=== PATIENT | male | born 1955 | race Caucasian/White ===

== ENCOUNTER 2017-01-02 14:25 | Inpatient (IN) | payer OTHER, MEDICARE ==
[~2017-01-02] VITALS: Ht 172.7 cm; Wt 147.4 kg
--- NOTE | ~2017-01-02 | ST ---
[place], [place] EXERCISE STRESS TEST REPORT NAME: REJI RUSS UNIT #: [id number] ROOM: 405 DOCTOR: JOSÉ MIGUEL HARDING MD BIRTHDATE: [birth year] DOS: 01/03/2017 Lexiscan Stress EKG REFERRING PHYSICIAN: Dr. Rossy Delarosa INDICATION: Precordial chest pain. The patient underwent standard protocol Lexiscan stress. The patient's baseline EKG showed normal sinus rhythm with isolated PVC. The patient's baseline heart rate was 90 with a blood pressure of 118/72. The patient's peak heart rate was 150 with a blood pressure 122/84. The patient denied chest pain. The patient had no significant other symptoms. The patient had no EKG changes. The patient had rare PVCs that was the only arrhythmia issue. SUMMARY OF FINDINGS: Unremarkable Lexiscan stress EKG. Please see separate report for perfusion scan results. JOSÉ MIGUEL HARDING MD CM:STRESS:EXERCISE STRESS TEST REPORT [id number] JOSÉ MIGUEL HARDING MD
[2017-01-02 14:25] VITALS: BP 113/64
[2017-01-02 14:58] LABS: BASO % 0.5 % (0.0-1.0); EOS # 0.2 10*3/uL (0.0-0.4); EOS % 5.3 % (1.0-4.0); HEMATOCRIT 34.7 % (42.0-52.0); HEMOGLOBIN 11.2 g/dl (14.0-18.0); LYMPH # 1.4 10*3/uL (1.3-4.4); LYMPH % 32.9 % (27.0-41.0); MEAN CELL VOLUME 90.8 fl (80.0-94.0); MEAN CORPUSCULAR HGB 29.3 pg (27.0-31.0); MEAN CORPUSCULAR HGB CONC 32.3 g/dl (33.0-37.0); MEAN PLATELET VOLUME 9.9 fl (9.6-12.3); MONO # 0.4 10*3/uL (0.1-1.0); MONO % 10.7 % (3.0-9.0); NEUT # 2.1 10*3/uL (2.3-7.9); NEUT % 50.4 % (47.0-73.0); PLATELET COUNT AUTOMATED 75 10*3/uL (130-400); RED BLOOD COUNT 3.82 10*6/uL (4.50-5.90); RED CELL DISTRI WIDTH 14.7 % (0-14.5); WHITE BLOOD COUNT 4.1 10*3/uL (4.8-10.8)
[2017-01-02 15:07] LABS: INTERNATIONAL NORM RATIO 1.1 (2.0-3.5); PROTHROMBIN TIME 11.4 SECONDS (9.0-12.4)
[2017-01-02] MEDS ORDERED: METFORMIN HCL500 MG PO (15:09)
[2017-01-02] MEDS ORDERED: LISINOPRIL10 M1 PO (15:09)
[2017-01-02] MEDS ORDERED: TAMSULOSIN HCL0.4 MG PO (15:09)
[2017-01-02] MEDS ORDERED: GLIPIZIDE5 MG PO (15:09)
[2017-01-02] MEDS ORDERED: MULTIPLE VITAMI1 TA5 PO (15:09)
[2017-01-02 15:14] LABS: ALBUMIN 3.2 gm/dl (3.1-4.5); ALKALINE PHOSPHATASE 79 U/L (45-117); BILIRUBIN, TOTAL 0.4 mg/dl (0.2-1.0); BUN 13 mg/dl (7-24); C-REACTIVE PROTEIN 0.83 MG/DL (0-0.3); CARBON DIOXIDE 29 mmol/L (21-32); CHLORIDE 105 mmol/L (98-107); CKMB 0.7 ng/ml (0.5-3.6); CPK 49 U/L (39-308); EST GLOM FILT AFRICAN AMERICAN > 60 ml/min; GLUCOSE 117 mg/dL (65-99); MAGNESIUM 2.1 mg/dL (1.5-2.1); POTASSIUM 4.1 mmol/L (3.5-5.1); SGOT/AST 34 IU/L (3-35); SGPT/ALT 43 U/L (12-78); SODIUM 141 mmol/L (136-145)
[2017-01-02 15:16] LABS: TROPONIN I < 0.015 ng/ml (<0.045)
[2017-01-02 16:22] VITALS: BP 106/60
[2017-01-02 17:40] VITALS: BP 127/65
[2017-01-02 18:15] VITALS: BP 122/58
[2017-01-02] MEDS ORDERED: ASPIRIN81 M1 PO (18:23)
[2017-01-02] MEDS ORDERED: GOODY'S EX-STR1 EAC1 PO (18:24)
[2017-01-02 20:00] VITALS: BP 118/63
[2017-01-03] VITALS: BP 104/56
[2017-01-03 00:29] LABS: CKMB 0.5 ng/ml (0.5-3.6); CPK 51 U/L (39-308)
[2017-01-03 00:30] LABS: TROPONIN I < 0.015 ng/ml (<0.045)
[2017-01-03 06:25] LABS: BASO % 0.5 % (0.0-1.0); EOS # 0.3 10*3/uL (0.0-0.4); HEMATOCRIT 34.3 % (42.0-52.0); HEMOGLOBIN 11.1 g/dl (14.0-18.0); LYMPH # 1.5 10*3/uL (1.3-4.4); LYMPH % 33.8 % (27.0-41.0); MEAN CELL VOLUME 90.7 fl (80.0-94.0); MEAN CORPUSCULAR HGB 29.4 pg (27.0-31.0); MEAN CORPUSCULAR HGB CONC 32.4 g/dl (33.0-37.0); MEAN PLATELET VOLUME 10.1 fl (9.6-12.3); MONO # 0.5 10*3/uL (0.1-1.0); MONO % 10.6 % (3.0-9.0); NEUT # 2.1 10*3/uL (2.3-7.9); NEUT % 48.9 % (47.0-73.0); PLATELET COUNT AUTOMATED 71 10*3/uL (130-400); RED BLOOD COUNT 3.78 10*6/uL (4.50-5.90); RED CELL DISTRI WIDTH 14.7 % (0-14.5); WHITE BLOOD COUNT 4.4 10*3/uL (4.8-10.8)
[2017-01-03 06:34] LABS: CKMB 0.6 ng/ml (0.5-3.6); CPK 49 U/L (39-308)
[2017-01-03 06:40] LABS: TROPONIN I < 0.015 ng/ml (<0.045)
[2017-01-03 06:44] LABS: HEMOGLOBIN A1c 6.1 % (4.8-5.6)
[2017-01-03 06:57] LABS: BILIRUBIN, TOTAL 0.6 mg/dl (0.2-1.0); BUN 11 mg/dl (7-24); CARBON DIOXIDE 30 mmol/L (21-32); CHLORIDE 106 mmol/L (98-107); CHOLESTEROL 158 mg/dL (<200); EST GLOM FILT AFRICAN AMERICAN > 60 ml/min; GLUCOSE 120 mg/dL (65-99); POTASSIUM 4.5 mmol/L (3.5-5.1); SGOT/AST 31 IU/L (3-35); SGPT/ALT 42 U/L (12-78); SODIUM 141 mmol/L (136-145)
[2017-01-03 07:03] LABS: INTERNATIONAL NORM RATIO 1.1 (2.0-3.5); PROTHROMBIN TIME 11.4 SECONDS (9.0-12.4)
[2017-01-03 07:04] LABS: ALKALINE PHOSPHATASE 66 U/L (45-117); FREE T4 0.85 ng/dl (0.76-1.46); HDL CHOLESTEROL 63 mg/dl (40-60); LDL CHOLESTEROL 78 mg/dL (9-159); TOTAL PROTEIN 6.6 gm/dL (6.4-8.2); TRIGLYCERIDES 83 mg/dl (<150); VLDL CHOLESTEROL 17 mg/dL (6-40)
[2017-01-03 07:17] LABS: VITAMIN D, 25-HYDROXY 42.4 ng/mL (30-100)
[2017-01-03 07:18] LABS: FOLIC ACID 19.38 ng/mL (>5.38)
[2017-01-03 08:00] VITALS: BP 130/70
[2017-01-03 12:24] LABS: CKMB 0.7 ng/ml (0.5-3.6); CPK 61 U/L (39-308); TROPONIN I < 0.015 ng/ml (<0.045)
[2017-01-03 16:00] VITALS: BP 152/79
[2017-01-03 20:00] VITALS: BP 136/79
== END 2017-01-03 20:48 | disposition home or self-care (01) | DRG 206 ==
LOC: ED 14:25 → EDHOLD 17:04 → 4E 17:04
PROVIDERS: Internal Medicine; Nurse Practitioner Family
PROC: 4A02XM4 Measurement of Cardiac Total Activity, External Approach (ICD-10-PCS; principal; 2017-01-03)
DX: M94.0 Chondrocostal junction syndrome [Tietze] (principal); D61.818 Other pancytopenia; E11.65 Type 2 diabetes mellitus with hyperglycemia; Z68.43 Body mass index [BMI] 50.0-59.9, adult; E83.51 Hypocalcemia; R01.1 Cardiac murmur, unspecified; I10 Essential (primary) hypertension; E66.01 Morbid (severe) obesity due to excess calories; Z87.891 Personal history of nicotine dependence; Z79.82 Long term (current) use of aspirin; Z79.84 Long term (current) use of oral hypoglycemic drugs; Z82.49 Family history of ischemic heart disease and other diseases of the circulatory system

== ENCOUNTER 2019-06-29 11:30 | Inpatient (IN) | payer MEDICARE, OTHER ==
[~2019-06-29] VITALS: Ht 172.7 cm; Wt 140.6 kg
[2019-06-29] VITALS (11 sets, daily range): BP systolic 90–114; BP diastolic 54–66
--- NOTE | ~2019-06-29 | EKG ---
[place], [place] ELECTROCARDIOGRAM REPORT NAME: REJI RUSS UNIT #: [id number] ROOM: 504 DOCTOR: EFREN DRAFT REPORT BIRTHDATE: [birth year] [facility] Test Date: 2019-06-29 Test Time: 14:38:28 Pat Name: REJI RUSS Department: Room: 504 Gender: M Utility Lineman: : 1955 Requested By: BRIAN KENT Order Number: [id number] Reading MD: Molly Beach MD Measurements Intervals [place] Rate: 108 P: [place]: QRS: 15 QRSD: 84 T: 17 QT: 323 QTc: 433 Interpretive Statements Atrial fibrillation Low voltage, precordial leads No previous ECG available for comparison Electronically Signed On 06-30-2019 17:29:24 PDT by Molly Beach MD CM:EKGRPT:ELECTROCARDIOGRAM REPORT [id number] BRIAN WILLIAMSON DRAFT REPORT BRIAN KENT DO
--- NOTE | ~2019-06-29 | CON ---
[place], [place] REPORT OF CONSULTATION NAME: REJI RUSS UNIT #: [id number] ROOM: 504 DOCTOR: MAYO CEDILLONATALEE BIRTHDATE: [birth year] DOS: 06/30/2019 HISTORY OF PRESENT ILLNESS: This is a 63-year-old gentleman apparently who follows up with the [facility], had an episode of tachyarrhythmia. The patient was found to be in atrial fibrillation with a rapid ventricular response, started on a Cardizem drip. The patient back into sinus rhythm. He denies any chest discomfort. No acute EKG changes suggestion of myocardial infarction. No history of previous TN. The patient is doing quite well. Denies any chest pain, shortness of breath, palpitations. Hemodynamically stable. PAST MEDICAL HISTORY: Significant for diabetes, hypertension, and dyslipidemia. PAST SURGICAL HISTORY: Adenoidectomy, pilonidal cyst, tonsillectomy and inguinal hernia surgery. SOCIAL HISTORY: Former smoker. FAMILY HISTORY: Not contributory. HOME MEDICATIONS: Aspirin, glipizide, lisinopril, and metformin. REVIEW OF SYSTEMS: CONSTITUTIONAL: No fever, no chills. HEENT: No visual disturbance or hearing problems. CARDIOVASCULAR: As per HPI. GASTROINTESTINAL: No nausea, no vomiting. GENITOURINARY: No dysuria. NEUROLOGICAL: Stable. PHYSICAL EXAMINATION: GENERAL: The patient is alert, oriented x 3. HEENT: Unremarkable. VITAL SIGNS: Blood pressure is 110/70. LUNGS: Clear. HEART: Sounds are regular. ABDOMEN: Soft, nontender. NEUROLOGIC: Stable. Original EKG showed atrial fibrillation, now he is in sinus rhythm. LABORATORY DATA: Shows hemoglobin 14.4 and hematocrit 42.9. Electrolytes are normal. Creatinine is normal. Troponins have been negative. LDL is normal. TSH is 1.64. IMPRESSION: The patient with paroxysmal atrial fibrillation, hypertension, diabetes, blood pressure is running on the lower side, decrease the metoprolol, and decrease the lisinopril. RECOMMENDATIONS: We will get an echocardiogram. Consideration should be given for a stress test as an outpatient and I will follow up with you. [place], [place] REPORT OF CONSULTATION NAME: REJI RUSS UNIT #: [id number] ROOM: 504 DOCTOR: NATALEE HUBER MD BIRTHDATE: [birth year] Thank you for this interesting consultation. NATALEE HUBER MD CM:CONSTR:REPORT OF CONSULTATION 1047 06/30/19 1616 interface
--- NOTE | ~2019-06-29 | EKG ---
[place], [place] ELECTROCARDIOGRAM REPORT NAME: REJI RUSS UNIT #: [id number] ROOM: 504 DOCTOR: EFREN DRAFT REPORT BIRTHDATE: [birth year] [facility] Test Date: 2019-06-29 Test Time: 18:14:14 Pat Name: REJI RUSS Department: Room: [facility] Gender: M Senior Professional Services Consultant: : 1955 Requested By: BRIAN KENT Order Number: [id number] Reading MD: Molly Beach MD Measurements Intervals [place] Rate: 90 P: [place]: QRS: 29 QRSD: 90 T: 32 QT: 365 QTc: 447 Interpretive Statements Atrial fibrillation Baseline wander in lead(s) V2 No previous ECG available for comparison Electronically Signed On 06-30-2019 17:30:34 PDT by Molly Beach MD CM:EKGRPT:ELECTROCARDIOGRAM REPORT [id number] 1730 BRIAN WILLIAMSON DRAFT REPORT BRIAN KENT DO
--- NOTE | ~2019-06-29 | EKG ---
[place], [place] ELECTROCARDIOGRAM REPORT NAME: REJI RUSS UNIT #: [id number] ROOM: 504 DOCTOR: EFREN DRAFT REPORT BIRTHDATE: [birth year] [facility] Test Date: 2019-06-29 Test Time: 11:45:48 Pat Name: REJI RUSS Department: Room: [facility] Gender: M Psych Rn: : 1955 Requested By: BRIAN KENT Order Number: [id number] Reading MD: Molly Beach MD Measurements Intervals [place] Rate: 119 P: [place]: QRS: 21 QRSD: 86 T: 22 QT: 312 QTc: 439 Interpretive Statements Atrial fibrillation No previous ECG available for comparison Electronically Signed On 06-30-2019 17:28:20 PDT by Molly Beach MD CM:EKGRPT:ELECTROCARDIOGRAM REPORT [id number] BRIAN WILLIAMSON DRAFT REPORT BRIAN KENT DO
[~2019-06-29 11:30] MED LIST: ASPIRIN81 M1 PO; GLIPIZIDE5 MG PO; GOODY'S EX-STR1 EAC1 PO; LISINOPRIL10 M1 PO; METFORMIN HCL500 MG PO; MULTIPLE VITAMI1 TA5 PO; TAMSULOSIN HCL0.4 MG PO
[2019-06-29 12:04] LABS: BASO % 0.2 % (0.0-1.0); EOS # 0.2 10*3/uL (0.0-0.4); EOS % 3.6 % (1.0-4.0); HEMATOCRIT 45.6 % (42.0-52.0); LYMPH # 1.5 10*3/uL (1.3-4.4); LYMPH % 27.4 % (27.0-41.0); MEAN CELL VOLUME 93.1 fl (80.0-94.0); MEAN CORPUSCULAR HGB 30.6 pg (27.0-31.0); MEAN CORPUSCULAR HGB CONC 32.9 g/dl (33.0-37.0); MEAN PLATELET VOLUME 10.3 fl (9.6-12.3); MONO # 0.6 10*3/uL (0.1-1.0); MONO % 11.5 % (3.0-9.0); NEUT % 57.1 % (47.0-73.0); PLATELET COUNT AUTOMATED 66 10*3/uL (130-400); RED CELL DISTRI WIDTH 14.6 % (0-14.5); WHITE BLOOD COUNT 5.3 10*3/uL (4.8-10.8)
[2019-06-29 12:14] LABS: ACT PARTIAL THROMBO TIME 26.9 SECONDS (20.0-32.1); INTERNATIONAL NORM RATIO 1.1 (2.0-3.5)
[2019-06-29 12:20] LABS: ALBUMIN 3.2 gm/dl (3.1-4.5); ALKALINE PHOSPHATASE 79 U/L (45-117); BUN 16 mg/dl (7-24); CHLORIDE 105 mmol/L (98-107); CREATININE 0.79 mg/dL (0.70-1.30); SGOT/AST 36 IU/L (3-35); SGPT/ALT 50 U/L (12-78); SODIUM 138 mmol/L (136-145); TOTAL PROTEIN 7.1 gm/dL (6.4-8.2)
[2019-06-29 12:23] LABS: TROPONIN I < 0.015 ng/ml (<0.045)
--- NOTE | 2019-06-29 13:22 | NUR ---
PT REMAINS W/O ACUTE DISTRESS NOTED AWAITING ALL RESULTS FOR ADDITIONAL PLAN OF CARE,PT POSITIONED FOR COMFORT WATCHING T.V.,FAMILY @ BEDSIDE AND CALL LIGHT WITHIN REACH.
--- NOTE | 2019-06-29 15:10 | NUR ---
HEART RATE 97 ON CM. CARDIZEM TITRATED TO 5MG/HR.
--- NOTE | 2019-06-29 15:20 | NUR ---
A 63, admitted to 5E, under the services of GIOVANI Parks DO with a diagnosis of AFIB W/ RVR NEW ONSET. Chief complaint is PER VA AFIB, DENIES COMPLAINTS. Patient arrived via stretcher from ER. Monitor applied. Initial assessment completed. Vital signs taken and recorded. GIOVANI PARKS DO notified of admission to the unit. Orders received. See assessment for past medical history, medications and allergies. Patient and/or family oriented to unit. [address] visitation policy reviewed. Clothing/patient valuable form completed. LORELEI TOBIN
[2019-06-29] MEDS ORDERED: IRON325 M1 PO (16:05)
--- NOTE | 2019-06-29 17:47 | NUR ---
DR MOY CORN GROWER FOR DR HUBER. NEW ORDERS RECEIVED.
--- NOTE | 2019-06-29 20:05 | NUR ---
CARDIZEM TITRATED TO 2.5MG D/T HEARTRATE IN 70'S, REMAINS AFIB.
--- NOTE | 2019-06-29 20:30 | NUR ---
CARDIZEM OFF AT THIS TIME. HEARTRATE IS NOW NORMAL SINUS AND RATE IN 60'S
--- NOTE | 2019-06-29 20:32 | NUR ---
Shift chart check completed.24 HR chart check completed.
--- NOTE | 2019-06-29 20:49 | NUR ---
DR ANNE MADE AWARE THAT PATIENT HAS CONVERTED TO NORMAL SINUS RHYTHM, WITH RATE IN 60'S, CARDIZEM HAS BEEN SHUT OFF.
--- NOTE | 2019-06-29 21:47 | NUR ---
DOSE OF TOPROL XL GIVEN PER DRS ORDERS, HEARTRATE 70 AT THIS TIME AND NSR RN WILL MONITOR
[2019-06-30] VITALS: BP 89/56
[2019-06-30 02:15] VITALS: BP 94/62
--- NOTE | 2019-06-30 06:33 | NUR ---
CONSULT AGAIN CALLED TO DR HUBER, AWAITING CALLBACK
[2019-06-30 06:34] LABS: BASO % 0.3 % (0.0-1.0); EOS # 0.2 10*3/uL (0.0-0.4); EOS % 3.1 % (1.0-4.0); HEMATOCRIT 42.9 % (42.0-52.0); HEMOGLOBIN 14.4 g/dl (14.0-18.0); LYMPH # 1.4 10*3/uL (1.3-4.4); LYMPH % 22.6 % (27.0-41.0); MEAN CELL VOLUME 92.7 fl (80.0-94.0); MEAN CORPUSCULAR HGB 31.1 pg (27.0-31.0); MEAN CORPUSCULAR HGB CONC 33.6 g/dl (33.0-37.0); MEAN PLATELET VOLUME 11.2 fl (9.6-12.3); MONO # 0.6 10*3/uL (0.1-1.0); MONO % 9.6 % (3.0-9.0); NEUT # 3.9 10*3/uL (2.3-7.9); NEUT % 64.2 % (47.0-73.0); PLATELET COUNT AUTOMATED 62 10*3/uL (130-400); RED BLOOD COUNT 4.63 10*6/uL (4.50-5.90); RED CELL DISTRI WIDTH 14.6 % (0-14.5); WHITE BLOOD COUNT 6.1 10*3/uL (4.8-10.8)
[2019-06-30 06:55] LABS: ALKALINE PHOSPHATASE 73 U/L (45-117); BUN 15 mg/dl (7-24); CHLORIDE 106 mmol/L (98-107); CHOLESTEROL 143 mg/dL (<200); FREE T4 0.95 ng/dl (0.76-1.46); HDL CHOLESTEROL 47 mg/dl (40-60); LDL CHOLESTEROL 78 mg/dL (9-159); PHOSPHOROUS 2.5 mg/dL (2.5-4.9); POTASSIUM 4.1 mmol/L (3.5-5.1); SGOT/AST 38 IU/L (3-35); SGPT/ALT 48 U/L (12-78); SODIUM 138 mmol/L (136-145); TOTAL PROTEIN 6.6 gm/dL (6.4-8.2); TRIGLYCERIDES 89 mg/dl (<150); VLDL CHOLESTEROL 18 mg/dL (6-40)
[2019-06-30 06:58] LABS: ACT PARTIAL THROMBO TIME 26.9 SECONDS (20.0-32.1); INTERNATIONAL NORM RATIO 1.1 (2.0-3.5)
[2019-06-30 07:40] LABS: VITAMIN D, 25-HYDROXY 26.6 ng/mL (30-100)
[2019-06-30 08:00] VITALS: BP 100/58
--- NOTE | 2019-06-30 09:18 | NUR ---
Patient resting quietly with no c/o discomfort. Respirations easy and regular. Vital signs stable. No overt distress. LORELEI TOBIN
--- NOTE | 2019-06-30 10:04 | NUR ---
DR PONCE NOTIFIED OF BP AT 100/58 WITHOUT AM MEDS.
--- NOTE | 2019-06-30 10:47 | NUR ---
DR PONCE UPDATED ON POC REGARDING STRESS AND MEDS PER DR HUBER.
[2019-06-30] MEDS ORDERED: VITAMIN D32000 UNI1 PO (11:02)
[2019-06-30] MEDS ORDERED: LISINOPRIL5 MG PO (11:02)
[2019-06-30] MEDS ORDERED: LOPRESSOR25 MG PO (11:02)
[2019-06-30 12:00] VITALS: BP 104/65
--- NOTE | 2019-06-30 13:04 | NUR ---
Conference Service Coordinator in to talk to patient. Patient states lives at HOME with . There are NO steps in the home. Physician: JAKUB [facility] Patient's level of ADLs: INDEPENDENT Patient has working utilities: YES DME: CPAP Follow-up physician's appointment after d/c: WILL BE MADE BY HOSITALIST NURSE DIRECTOR ON DISCHARGE Does patient want to access PORTAL?: NO Discharge plan PT LIVES AT HOME WITH HIS AND IS INDEPENDENT IN HIS CARE. DENIES NEEDS ON DISCHARGE. PLAN IS TO RETURN HOME WITH . USES A CPAP AT NIGHT. WILL CONTINUE TO FOLLOW. WILL HAVE A RIDE HOME PER PT.. MIGUEL ANGEL GRANT
--- NOTE | 2019-06-30 16:30 | NUR ---
LEAVING VIA WHEELCHAIR IN CARE OF AIDE TO DRIVE HIMSELF HOME.
== END 2019-06-30 16:30 | disposition home or self-care (01) | DRG 309 ==
LOC: ED 11:30 → EDHOLD 14:02 → 5E 14:02
PROVIDERS: Emergency Medicine; Internal Medicine; ADMIT Internal Medicine
DX: I48.0 Paroxysmal atrial fibrillation (principal); D69.3 Immune thrombocytopenic purpura; E87.2 Acidosis; Z68.42 Body mass index [BMI] 45.0-49.9, adult; E11.65 Type 2 diabetes mellitus with hyperglycemia; E80.6 Other disorders of bilirubin metabolism; E11.59 Type 2 diabetes mellitus with other circulatory complications; I10 Essential (primary) hypertension; E66.01 Morbid (severe) obesity due to excess calories; R01.1 Cardiac murmur, unspecified; K76.0 Fatty (change of) liver, not elsewhere classified; I87.8 Other specified disorders of veins; Z82.49 Family history of ischemic heart disease and other diseases of the circulatory system; Z87.891 Personal history of nicotine dependence; Z88.5 Allergy status to narcotic agent; Z79.899 Other long term (current) drug therapy

== ENCOUNTER → 2019-07-06 | Outpatient (CLI) | payer MEDICARE ==
[~2019-07-06] MED LIST changes: +IRON325 M1 PO; +LISINOPRIL5 MG PO; +LOPRESSOR25 MG PO; +VITAMIN D32000 UNI1 PO
--- NOTE | ~2019-07-06 | ST ---
[place], [place] EXERCISE STRESS TEST REPORT NAME: [facility]JI RUSS [facility] [id number] UNIT #: [id number] ROOM: DOCTOR: NATALEE HUBER MD BIRTHDATE: [birth year] DOS: 07/06/2019 LEXISCAN CARDIOLITE Baseline cardiogram, sinus rhythm with nonspecific ST-T changes. With Lexiscan, no new EKG changes. No chest pain. Blood pressure and heart rate responses normal. Nuclear images will be reported separately. NATALEE HUBER MD CM:STRESS:EXERCISE STRESS TEST REPORT [id number] NATALEE HUBER MD
--- NOTE | 2019-07-06 06:46 | NUR ---
INFORMED SIGNED CONSENT OBTAINED FOR LEXISCAN STRESS TEST WITH DR HUBER. RESTING EKG NSR HR 62 BP 100/654, PULSE OX 95% LUNGS CLEAR. PT COMPLETED ONE MINUTE OF A LEXISCAN PROTOCOL WITH PT RECEIVING LEXISCAN 0.4MG IV OVER 10 SECONDS. NO ARRHYTHMIAS OR ST CHAGNES SEEN. PT HAD NO COMPLAINTS WITH INJECTION. LAST RECOVERY HR OF 72 BP 100/60. PT IN STALBE CONDITION, AWIATING NUCLEAR IMAGES.
== END | disposition home or self-care (01) ==
LOC: CARD 00:30
DX: R06.02 Shortness of breath (principal); I48.91 Unspecified atrial fibrillation